=== PATIENT | female | born 1955 ===

== ENCOUNTER 2020-08-27 05:30 | Day surgery (SDC) | payer OTHER ==
[~2020-08-27 05:30] MED LIST: SYNTHROID50 MCG PO; TOPROL XL25 M1 PO
== END 2020-08-27 10:05 | disposition home or self-care (01) ==
LOC: CIR.AMB 05:30
PROVIDERS: ATTEND Colon & Rectal Surgery
DX: C20 Malignant neoplasm of rectum (principal); Z20.822 Contact with and (suspected) exposure to COVID-19
CPT/HCPCS: 36561; C1751

== ENCOUNTER 2020-12-27 06:40 | Day surgery (SDC) | payer OTHER | END 2020-12-27 12:10 | disposition home or self-care (01) | LOC: CIR.AMB 06:40 | PROVIDERS: ATTEND Colon & Rectal Surgery | DX: K52.89 Other specified noninfective gastroenteritis and colitis (principal); Z20.822 Contact with and (suspected) exposure to COVID-19 ==

== ENCOUNTER 2021-10-14 05:46 | Day surgery (SDC) | payer OTHER | END 2021-10-14 09:20 | disposition home or self-care (01) | LOC: AMB-ENDOS 05:46 | PROVIDERS: ATTEND Colon & Rectal Surgery | DX: D12.0 Benign neoplasm of cecum (principal); Z85.048 Personal history of other malignant neoplasm of rectum, rectosigmoid junction, and anus; K64.1 Second degree hemorrhoids; C20 Malignant neoplasm of rectum; K92.2 Gastrointestinal hemorrhage, unspecified; E03.9 Hypothyroidism, unspecified; I10 Essential (primary) hypertension; Z79.82 Long term (current) use of aspirin ==